=== PATIENT | female | born 1970 | race Caucasian/White ===

== ENCOUNTER 2017-04-22 08:56 | Emergency (ER) | END 2017-04-22 13:18 | disposition home or self-care (01) ==

== ENCOUNTER 2018-10-24 18:07 | Emergency (ER) | payer MEDICAID ==
[~2018-10-24] VITALS: Ht 154.9 cm; Wt 63.4 kg
[~2018-10-24 18:07] MED LIST: CEPH-443 PO; CIPR500T4 PO; HYDR25SU37 PR; IBUP-1542 PO; PHEN-717 PO; POLY17PO6 PO; PREN1TAB49 PO
[2018-10-24 18:16] VITALS: Ht 154.9 cm; Wt 63.4 kg
[2018-10-24] MEDS ORDERED: KETOROLAC 15 MG INJ IV STA (18:37)
[2018-10-24] MEDS ORDERED: CEFTRIAXONE 1 GM/50 ML (PMX) 50 ML IVPB ONE (20:00)
[2018-10-24 20:19] VITALS: BP 133/66; PULSE 59; RESP 16
== END 2018-10-24 20:40 | disposition home or self-care (01) ==
LOC: E/R 18:07
DX: N30.00 Acute cystitis without hematuria (principal)
CPT/HCPCS: 36415; 80048; 81001; 81025; 85025; 96374; 96375; J0696; J1885; Z7502; 81003